=== PATIENT | female | born 1985 | race Caucasian/White ===

== ENCOUNTER 2016-12-12 19:12 | Outpatient (CLI) | payer OTHER ==
[~2016-12-12] VITALS: Ht 157.5 cm; Wt 79.0 kg
[2016-12-12 19:31] VITALS: BP 133/71
[2016-12-12] MEDS ORDERED: BENA25TA9 PO (19:38)
[2016-12-12 20:12] LABS: MEAN CORPUSCULAR HEMOGLOBIN 28.6 pg (27.0-33.0); MEAN CORPUSCULAR HGB CONC 34.2 g/dl (32.0-36.5); MEAN CORPUSCULAR VOLUME 83.7 fl (80.0-96.0); RED CELL DISTRIBUTION WIDTH 15.1 % (11.5-14.5); WHITE BLOOD COUNT 7.3 K/mm3 (4.0-10.0)
[2016-12-12 20:29] LABS: ALBUMIN 2.9 GM/DL (3.2-5.2); ALBUMIN/GLOBULIN RATIO 0.91 (1.00-1.93); ALKALINE PHOSPHATASE 125 U/L (45-117); ALT/SGPT 12 U/L (12-78); ANION GAP 11 MEQ/L (8-16); AST/SGOT 15 U/L (15-37); BILIRUBIN,TOTAL 0.4 MG/DL (0.2-1.0); BLOOD UREA NITROGEN 7 MG/DL (7-18); CALCIUM LEVEL 7.9 MG/DL (8.5-10.1); CARBON DIOXIDE LEVEL 22 MEQ/L (21-32); CHLORIDE LEVEL 108 MEQ/L (98-107); CREATININE FOR GFR 0.57 MG/DL (0.55-1.02); GLOMERULAR FILTRATION RATE > 60.0 (>60); GLUCOSE, FASTING 117 MG/DL (70-105); POTASSIUM SERUM 3.5 MEQ/L (3.5-5.1); SODIUM LEVEL 141 MEQ/L (136-145); TOTAL PROTEIN 6.1 GM/DL (6.4-8.2)
[2016-12-12 20:32] VITALS: BP 129/72
[2016-12-12 21:00] VITALS: BP 124/73
== END 2016-12-12 21:15 | disposition home or self-care (01) ==
LOC: M LDO 19:12
PROVIDERS: ATTEND Obstetrics & Gynecology
DX: O99.713 Diseases of the skin and subcutaneous tissue complicating pregnancy, third trimester (principal); L29.9 Pruritus, unspecified; Z3A.36 36 weeks gestation of pregnancy

== ENCOUNTER 2017-01-02 04:38 | Outpatient (CLI) | payer OTHER ==
[~2017-01-02] VITALS: Ht 157.5 cm; Wt 88.0 kg
[~2017-01-02 04:38] MED LIST: BENA25TA9 PO
[2017-01-02] MEDS ORDERED: ZYRT10TA2 PO (04:48)
[2017-01-02 04:53] VITALS: BP 118/68
--- NOTE | 2017-01-02 08:58 | IPNPDOC ---
Obstetrical Progress Note Date of Service The patient was seen on 01/02/17 at 08:48. Progress Note [id number] @ 0849 31 yo @ 39+1 by LMP([id number]) and 8 wk US on 01JUN2016. ZHAO- [id number]. Presented to L&D ambulatory for CTXs every [address] Barrios evaluated and had pt walking. Report from Denis at 0730. 31 yo grand-multip @ 39+1 with Reactive and reassuring NST. SVE-3/50/-3(done by nursing around 529). Presented for regular CTX. Oral hydration and pt sent walking after NST. S: reports feeling regular CTXs every 5 min earlier in the am, but they are now irregular and coming less frequently. O: VS- WNL, afebrile FHR- BL 140, moderate variabity, + accels, 1 early decel noted(NST done on my arrival) CTX- irregular, palpated as mild, resting tone palpated as mild SVE- 3/50/-3, vtx/mod/mid A: 31 yo @ 39+1 by LMP([id number]) and 8 wk US on [id number]. ZHAO- [id number]. Not in active labor with a reactive NST. P: Discharge to home now with strict return precautions. VS, I&O, 24H, Fishbone Vital Signs/I&O Vital Signs Date Time Temp Pulse Resp B/P Pulse Ox O2 Delivery O2 Flow Rate FiO2 01/02/17 07:18 98.1 18 01/02/17 04:53 115 118/68 Room Air JOHNNY BROWN CNM Jan 02, 2017 08:58
== END 2017-01-02 08:46 | disposition home or self-care (01) ==
LOC: M LDO 04:38
PROVIDERS: ATTEND Obstetrics & Gynecology
DX: O47.1 False labor at or after 37 completed weeks of gestation (principal); Z3A.39 39 weeks gestation of pregnancy